=== PATIENT | female | born 1955 | race Caucasian/White ===

== ENCOUNTER 2018-09-30 11:49 | Emergency (ER) | payer OTHER ==
[~2018-09-30] VITALS: Ht 172.7 cm; Wt 67.1 kg
[2018-09-30 11:58] VITALS: BP 139/52
== END 2018-09-30 14:54 | disposition home or self-care (01) ==
LOC: ER 11:49
DX: S63.501A Unspecified sprain of right wrist, initial encounter (principal); W01.198A Fall on same level from slipping, tripping and stumbling with subsequent striking against other object, initial encounter; Y93.89 Activity, other specified; Y99.8 Other external cause status; Y92.89 Other specified places as the place of occurrence of the external cause
CPT/HCPCS: 29125; 73090; 73110

== ENCOUNTER 2018-09-30 18:41 | Emergency (ER) | payer OTHER ==
[~2018-09-30] VITALS: Ht 172.7 cm; Wt 67.1 kg
[2018-09-30 20:06] VITALS: BP 119/58
[2018-09-30] MEDS ORDERED: IBUPROFEN 600 MG TAB PO ONE (20:45)
== END 2018-09-30 21:36 | disposition home or self-care (01) ==
LOC: ER 18:43
DX: S52.572A Other intraarticular fracture of lower end of left radius, initial encounter for closed fracture (principal); S52.612A Displaced fracture of left ulna styloid process, initial encounter for closed fracture; W01.0XXA Fall on same level from slipping, tripping and stumbling without subsequent striking against object, initial encounter; Y93.89 Activity, other specified; Y92.89 Other specified places as the place of occurrence of the external cause; Y99.8 Other external cause status
CPT/HCPCS: 29105; 29125; 73110